=== PATIENT | male | born 1955 | race Caucasian/White ===

== ENCOUNTER 2016-07-15 01:11 | Emergency (ER) | payer OTHER ==
[~2016-07-15] VITALS: Ht 180.3 cm; Wt 109.2 kg
[2016-07-15 01:17] VITALS: BP 148/90
[2016-07-15] MEDS ORDERED: AMLODIPINE-BEN1 EAC2 PO (03:17)
[2016-07-15 04:04] LABS: MCH 31.7 PG (29.0-34.0); MCHC 34.8 G/DL (30.0-36.0); MCV 91.1 FL (86-99); MEAN PLAT.VOLUME 10.4 uM^3 (9.0-12.4); PLATELET COUNT 157 K/uL (156-360); RBC DIS.WIDTH-CV 12.2 % (11.8-14.6); RBC DIS.WIDTH-SD 40.1 % (39-53); RED BLOOD COUNT 5.05 M/uL (4.00-5.50); WHITE BLOOD COUNT 9.2 K/uL (4.1-10.2)
[2016-07-15 04:29] LABS: CHLORIDE 107 mEq/L (99-109); POTASSIUM 4.2 mEq/L (3.7-5.4); SODIUM 140 mEq/L (136-147)
[2016-07-15 04:30] LABS: GLUCOSE 122 mg/dL (70-99)
[2016-07-15 04:32] LABS: ANION GAP 8 MEQ/L (2-14)
[2016-07-15 04:34] LABS: GFR ESTIMATE (CALCULATED) > 59 mL/min/
[2016-07-15 04:35] LABS: UREA NITROGEN (BUN) 32 mg/dL (9-23)
[2016-07-15] MEDS ORDERED: INDOCIN50 MG PO (04:49)
== END 2016-07-15 05:07 | disposition home or self-care (01) ==
LOC: EME 01:11
PROVIDERS: Nurse Practitioner Family
PROC: 2W3MX1Z Immobilization of Left Lower Extremity using Splint (ICD-10-PCS; principal; 2016-07-15)
DX: S82.832A Other fracture of upper and lower end of left fibula, initial encounter for closed fracture (principal); I10 Essential (primary) hypertension; E78.5 Hyperlipidemia, unspecified; Z96.652 Presence of left artificial knee joint
CPT/HCPCS: 73610; 80048; 84550; 85027; 99281; 99283